=== PATIENT | male | born 1990 | race Caucasian/White ===

== ENCOUNTER 2016-11-27 23:58 | Emergency (ER) | payer OTHER ==
[~2016-11-27] VITALS: Ht 172.7 cm; Wt 83.2 kg
[~2016-11-27 23:58] MED LIST: ANAPROX DS550 M1 PO; CLONIDINE HCL0.1 MG PO; ERYTHROMYC1 APPLICAT RIGHT EYE; MOTRIN600 MG PO; NAPROSYN500 MG PO; NOHOMEMEDS; OMEPRAZOLE20 MG PO; TRAZODONE HCL50 MG PO; ULTRAM50 MG PO; VICODIN,LORT1 TABLET PO
[2016-11-28 00:18] VITALS: BP 129/88
[2016-11-28] MEDS ORDERED: NAPROXEN500 MG PO (01:09)
[2016-11-28] MEDS ORDERED: ULTRAM50 MG PO (01:09)
== END 2016-11-28 01:24 | disposition home or self-care (01) ==
LOC: EME 23:58 → EXP 23:58
DX: M79.672 Pain in left foot (principal)
CPT/HCPCS: 99281; 99283

== ENCOUNTER 2017-01-15 05:47 | Emergency (ER) | payer OTHER ==
[~2017-01-15] VITALS: Ht 172.7 cm; Wt 83.5 kg
[~2017-01-15 05:47] MED LIST changes: +NAPROXEN500 MG PO
[2017-01-15] MEDS ORDERED: TYLENOL WITH C1 EACH PO (07:04)
[2017-01-15 07:14] VITALS: BP 139/92
== END 2017-01-15 07:15 | disposition home or self-care (01) ==
LOC: EME 05:47
PROC: 0H9QXZZ Drainage of Finger Nail, External Approach (ICD-10-PCS; principal; 2017-01-15)
DX: S60.111A Contusion of right thumb with damage to nail, initial encounter (principal); W23.0XXA Caught, crushed, jammed, or pinched between moving objects, initial encounter
CPT/HCPCS: 73130; 99281; 99283

== ENCOUNTER 2017-03-20 23:36 | Emergency (ER) | payer OTHER ==
[~2017-03-20] VITALS: Ht 172.7 cm; Wt 76.0 kg
[~2017-03-20 23:36] MED LIST changes: +TYLENOL WITH C1 EACH PO
[2017-03-20 23:45] VITALS: BP 121/80
== END 2017-03-21 03:30 | disposition left against medical advice (07) ==
LOC: EME 23:36
DX: R22.2 Localized swelling, mass and lump, trunk (principal); Z53.21 Procedure and treatment not carried out due to patient leaving prior to being seen by health care provider

== ENCOUNTER 2017-07-10 06:09 | Emergency (ER) | payer SELFPAY ==
[~2017-07-10] VITALS: Ht 172.7 cm; Wt 68.1 kg
[2017-07-10 07:06] LABS: EOSINOPHIL (%) 0.8 % (0-5); EOSINOPHIL COUNT 0.1 K/uL (0-0.3); HEMATOCRIT 46.6 % (38.0-50.0); IMMATURE GRANULOCYTE (%) 0.4 % (0.0-0.7); IMMATURE GRANULOCYTE COUNT 0.1 K/uL; LYMPHOCYTE COUNT 2.1 K/uL (1.0-2.8); MCHC 33.3 G/DL (30.0-36.0); MCV 90.1 FL (86-99); MEAN PLAT.VOLUME 10.1 uM^3 (9.0-12.4); MONOCYTE (%) 7.8 % (3-12); NEUTROPHIL (%) 73.6 % (45-76); PLATELET COUNT 269 K/uL (156-360); RBC DIS.WIDTH-CV 13.9 % (11.8-14.6); RBC DIS.WIDTH-SD 46.3 % (39-53); RED BLOOD COUNT 5.17 M/uL (4.00-5.50); WHITE BLOOD COUNT 12.3 K/uL (4.1-10.2)
[2017-07-10 07:24] LABS: ANION GAP 9 MEQ/L (2-14); CHLORIDE 103 MEQ/L (99-109); POTASSIUM 3.9 MEQ/L (3.7-5.4); SAMPLE HEMOLYSIS CHECK 0; SAMPLE ICTERIC CHECK 0; SAMPLE LIPEMIA CHECK 0; SODIUM 141 MEQ/L (136-147)
[2017-07-10 07:30] LABS: GFR ESTIMATE (CALCULATED) > 59 mL/min/; GLUCOSE 128 mg/dL (70-99); UREA NITROGEN (BUN) 18 mg/dL (9-23)
[2017-07-10 08:39] LABS: ADD MIUA? YES; BILIRUBIN NEGATIVE; BLOOD MODERATE; COLOR YELLOW ((YELLOW)); GLUCOSE (STRIP) NEGATIVE; KETONES NEGATIVE; LEUKOCYTES NEGATIVE; NITRITE NEGATIVE; PROTEIN (STRIP) 30; SPECIFIC GRAVITY 1.015 (1.000-1.030); UROBILINOGEN 0.2 MG/DL (0.2-1.0)
[2017-07-10 08:50] LABS: BACTERIA NONE SEEN /HPF; EPITHELIAL CELLS NONE SEEN /HPF; MUCUS TRACE /LPF; RED BLOOD CELLS TNTC /HPF (0-5); WHITE BLOOD CELLS 0-5 /HPF (0-5)
[2017-07-10] MEDS ORDERED: ZOFRAN4 MG PO (09:05)
[2017-07-10] MEDS ORDERED: PERCOCET 5/31 TABLET PO (09:05)
[2017-07-10 09:23] VITALS: BP 112/44
== END 2017-07-10 09:25 | disposition home or self-care (01) ==
LOC: EME 06:09
PROVIDERS: Emergency Medicine
DX: N20.0 Calculus of kidney (principal); F17.200 Nicotine dependence, unspecified, uncomplicated
CPT/HCPCS: 74176; 80048; 81003; 85025; 99281; 99284; J2270; J2405; J7030